=== PATIENT | female | born 1975 | race Caucasian/White ===

== ENCOUNTER 2022-11-09 00:53 | Emergency (ER) | payer OTHER, SELFPAY ==
[2022-11-09 00:55] VITALS: BP 123/76; PULSE 74; RESP 18; TEMP 36.2; O2SAT 100; BMI 33.7
--- NOTE | 2022-11-09 01:32 | ED.DENTAL ---
HPI - Dental/Oral General Chief complaint: Dental/Oral Stated complaint: Dental pain Time Seen by Provider: 11/09/22 01:16 Source: patient Mode of arrival: ambulatory Limitations: no limitations History of Present Illness HPI Narrative: 47-year-old female presents with dental pain. Pain started last 24-48 hours. Pain is moderate in nature. Better with ibuprofen. The pain does not radiate. Not associated with fevers, chills or swelling. Patient has had a dental saba for quite some time but never followed up with Dentistry. Related Data Previous Rx's Medication Instructions Recorded amoxicillin 875 mg-potassium 1 tab PO BID #20 tabs 11/09/22 clavulanate 125 mg tablet Allergies Allergy/AdvReac Type Severity Reaction Status Date / Time No Known Allergies Allergy Unverified 01/26/20 19:03 [No Known Allergies*] Review of Systems Review of Systems: CONSTITUTIONAL: Denies weight loss, fever and chills. HEENT: Denies changes in vision and hearing. RESPIRATORY: Denies SOB and cough. CV: Denies palpitations no CP. GI: Denies abdominal pain, nausea, vomiting and diarrhea. : Denies dysuria and urinary frequency. MSK: Denies myalgia and joint pain. SKIN: Denies rash and pruritus. NEUROLOGICAL: Denies headache and syncope. PSYCHIATRIC: Denies recent changes in mood. Denies anxiety and depression. All other ROS are negative unless in HPI PMFSH Social History Social History Alcohol intake: never Smoked in Last 30 Days: No Use of substances other than those prescribed or required for medical reasons: No Advance Directives: No Advance Directives Information Provided: No Patient : No Physical Exam Vital Signs: Vital Signs: Last Vital Signs Temp 97.1 F 11/09/22 00:55 Pulse 74 11/09/22 00:55 Resp 18 11/09/22 00:55 BP 123/76 11/09/22 00:55 Pulse Ox 100 11/09/22 00:55 O2 Del Method Room Air 11/09/22 00:55 BMI result Body Mass Index 33.7 GEN: Well developed, no acute distress, alert, oriented HEENT: Normocephalic, atraumatic, normal external ears, nose appears normal Eyes: Normal to appearance Neck: Supple, no lymphadenopathy Respiratory: Talks in complete sentences, no respiratory distress Extremities: No clubbing cyanosis or edema Neurologic: No focal neurologic deficits, cranial nerves 2-12 intact, gait normal Skin: No rash HEENT: Teeth image: 1. Dental saba, no gingival erythema or swelling, no facial swelling Course Course Course Narrative: 47-year-old female presents with dental pain. There is no facial swelling. Suspect apical abscess. Will start patient on Augmentin. Patient will take ibuprofen, Tylenol as needed for pain. She will follow-up with dentistry. Medications Administered Discontinued Medications Generic Name Dose Route Start Last Admin Trade Name Albertq PRN Reason Stop Dose Admin Acetaminophen 975 mg 11/09/22 01:24 11/09/22 01:29 Acetaminophen 325 Mg Tablet PO 11/09/22 01:25 975 mg ONCE ONE Administration Amoxicillin/Clavulanate Potassium 875 mg 11/09/22 01:24 11/09/22 01:29 Amoxicillin/Potassium Clav 875 Mg Tablet PO 11/09/22 01:25 875 mg ONCE ONE Administration Ibuprofen 800 mg 11/09/22 01:24 11/09/22 01:29 Ibuprofen 800 Mg Tablet PO 11/09/22 01:25 800 mg ONCE ONE Administration Medical Decision Making Medical Decision Making [facility] Narrative: Patient presents with dental pain. Differential diagnosis includes dental saba, periapical abscess, gingivitis, sinusitis Plan: Augmentin, NSAIDs, Tylenol Follow-up: Dentistry Differential Diagnosis Differential Diagnoses: The differential diagnosis associated with the presentation includes (See above) Independent Historian Clinical information obtained from an independent historian. History obtained from or confirmed by: Spouse Prescription Management I considered prescription management with: Pain Medication and Antibiotic Discharge Plan Discharge Clinical Impression: Toothache, Dental caries Patient Disposition: Home, Self-Care Instructions: Toothache (ED) Prescriptions: New amoxicillin-pot clavulanate 875-125 mg tablet 1 tab PO BID Qty: 20 0RF Referrals: [facility] [Outside]
== END 2022-11-09 01:38 | disposition home or self-care (01) ==
PROVIDERS: Emergency Provider Emergency Medicine
DX: K08.89 Other specified disorders of teeth and supporting structures (principal); K02.9 Dental caries, unspecified
CPT/HCPCS: 99283; 99284